=== PATIENT | female | born 1980 | race Hispanic/Latino ===

== ENCOUNTER → 2019-07-03 | Outpatient (CLI) | payer OTHER ==
--- NOTE | 2019-07-03 11:04 | Diagnostic Imaging Report ---
TECHNIQUE: Magnetic resonance imaging of the RIGHT KNEE was performed WITHOUT injected contrast. HISTORY: Knee pain COMPARISON: None available. FINDINGS: LIGAMENTS AND TENDONS: ACL: Intact PCL: Intact Collateral ligaments: Intact Iliotibial band: Unremarkable Popliteal tendon: Intact Extensor mechanism: Advanced patellar tendinopathy with thickening. No tear. Postsurgical change to the lateral retinaculum which may reflect prior release. JOINT: Menisci: Medial: Degenerative signal without discrete tear. Lateral: Intact. Articular Cartilage: Medial Compartment: No focal defect. Lateral Compartment: No focal defect. Patellofemoral Compartment: Patellar cartilage edema. Joint Fluid: Trace joint effusion. BONE: No focal or infiltrative bone marrow replacing abnormality. No acute fracture. SOFT TISSUES: Otherwise, unremarkable. IMPRESSION: No acute osseous, ligamentous, or meniscal abnormality. Advanced patellar tendinopathy. Postsurgical change to the lateral retinaculum may reflect prior release. Signed by: Dr. Kenn Chavez M.D. on 07/03/2019 11:01 AM
== END ==
LOC: MRI 09:46
PROVIDERS: ATTEND Specialist
DX: M25.561 Pain in right knee (principal); M23.91 Unspecified internal derangement of right knee

== ENCOUNTER 2019-09-12 14:21 | Outpatient (RCR) | payer OTHER, MEDICARE | END 2019-10-06 | LOC: PT 14:21 | PROVIDERS: ATTEND Specialist | DX: M76.51 Patellar tendinitis, right knee (principal); M25.561 Pain in right knee; M25.661 Stiffness of right knee, not elsewhere classified; R26.2 Difficulty in walking, not elsewhere classified ==